=== PATIENT | female | born 1980 ===

== ENCOUNTER 2020-06-30 07:08 | Day surgery (SDC) | payer OTHER ==
[2020-06-30] MEDS ORDERED: NEXIUM 24HR20 M1 PO (09:08)
== END 2020-06-30 10:45 | disposition home or self-care (01) ==
LOC: AMB-ENDOS 07:08
PROVIDERS: ATTEND Surgery
DX: D13.1 Benign neoplasm of stomach (principal); K44.9 Diaphragmatic hernia without obstruction or gangrene; Z20.822 Contact with and (suspected) exposure to COVID-19